=== PATIENT | female | born 1965 ===

== ENCOUNTER 2021-11-07 06:00 | Outpatient (RCR) | payer BC, SELFPAY | END 2021-12-06 23:59 | disposition home or self-care (01) | LOC: MPT 06:00 | PROVIDERS: Referring Provider Family Medicine; Visit Provider Family Medicine | DX: M99.05 Segmental and somatic dysfunction of pelvic region (principal) | CPT/HCPCS: 97110; 97140; 97161; 97530 ==

== ENCOUNTER 2021-12-07 06:00 | Outpatient (RCR) | payer BC, SELFPAY | END 2022-01-06 23:59 | disposition home or self-care (01) | LOC: MPT 06:00 | PROVIDERS: Visit Provider Family Medicine | DX: M99.05 Segmental and somatic dysfunction of pelvic region (principal) | CPT/HCPCS: 97110; 97140; 97530 ==

== ENCOUNTER 2022-01-07 06:00 | Outpatient (RCR) | payer BC, SELFPAY | END 2022-02-05 23:59 | disposition home or self-care (01) | LOC: MPT 06:00 | PROVIDERS: Visit Provider Family Medicine | DX: M99.05 Segmental and somatic dysfunction of pelvic region (principal) | CPT/HCPCS: 97110; 97140 ==

== ENCOUNTER → 2024-08-09 14:25 | Outpatient (BNVA) | payer BC, SELFPAY | PROVIDERS: Visit Provider Nurse Practitioner | DX: R19.7 Diarrhea, unspecified (principal) | CPT/HCPCS: 87045; 87427; 87449; 87493 ==

== ENCOUNTER → 2025-01-02 14:18 | Outpatient (BNVA) | payer BC, SELFPAY | PROVIDERS: Visit Provider Nurse Practitioner | DX: M25.551 Pain in right hip (principal) | CPT/HCPCS: 73502 ==